=== PATIENT | male | born 2000 | race Two or more races ===

== ENCOUNTER 2021-05-26 17:57 | Emergency (ER) | payer MEDICAID ==
[~2021-05-26] VITALS: Ht 182.9 cm; Wt 72.7 kg
[2021-05-26] MEDS ORDERED: ACETAMINOPHEN 500 MG TABLET PO ONE (20:15)
[2021-05-26] MEDS ORDERED: KETOROLAC TROMETHAMINE 30 MG/ML VIAL IVP ONE (20:15)
[2021-05-26] MEDS ORDERED: ONDANSETRON HCL 4 MG/2 ML VIAL IVP ONE (20:15)
[2021-05-26] MEDS ORDERED: SODIUM CHLORIDE 0.9% 2,000 ML IV ONE (20:15)
[2021-05-26] MEDS ORDERED: MECLIZINE HCL 25 MG TABLET PO ONE (20:15)
[2021-05-26 20:24] LABS: BASOPHILS % (AUTO) 0.1 % (0.0-2.0); EOSINOPHILS % (AUTO) 0.1 % (1.0-6.0); HEMATOCRIT 47.9 % (41-53); HEMOGLOBIN 16.4 g/dL (13.5-17.5); LYMPHOCYTES # (AUTO) 1.1 K/uL (1.0-4.8); LYMPHOCYTES % (AUTO) 6.9 % (22.0-44.0); MEAN CORPUSCULAR HEMOGLOBIN 30.1 pg (26.0-34.0); MEAN CORPUSCULAR HGB CONC 34.2 G/dL (31.0-37.0); MEAN CORPUSCULAR VOLUME 88 fL (80-100); MONOCYTES # (AUTO) 1.2 K/uL (0.1-1.0); MONOCYTES % (AUTO) 7.6 % (2.0-9.0); NEUTROPHILS # (AUTO) 13.3 K/uL (1.8-7.7); PLATELET COUNT (AUTO) 282 K/uL (150-450); RED BLOOD CELL COUNT(AUTO) 5.44 MIL/uL (4.50-5.90); RED CELL DISTRIBUTION WIDTH 13.1 % (11.5-14.5)
[2021-05-26 20:33] LABS: NEUTROPHILS % (AUTO) 85.3 % (40.0-70.0)
[2021-05-26 20:34] LABS: CALCIUM, TOTAL 11.5 mg/dL (8.8-10.5); CREATININE 2.32 mg/dL (0.60-1.30)
[2021-05-26 20:40] LABS: TOTAL PROTEIN, SERUM 10.5 g/dL (6.4-8.2)
[2021-05-26 21:42] LABS: APPEARANCE,URINE TURBID (CLEAR); GLUCOSE, URINE (UA) NEGATIVE (NEGATIVE); KETONES,URINE 15 mg/dL (NEGATIVE); LEUKOCYTE ESTERASE ,URINE NEGATIVE (NEGATIVE); NITRATE,URINE NEGATIVE (NEGATIVE); OCCULT BLOOD,URINE NEGATIVE (NEGATIVE); PROTEIN,URINE SEE CONFIRM (NEGATIVE)
[2021-05-26 22:05] LABS: PLATELET MORPHOLOGY COMMENT LARGE PLTS PRESENT
[2021-05-26 22:07] LABS: BILIRUBIN,URINE PRELIM. POSITIVE (NEGATIVE)
[2021-05-26 22:09] LABS: SULFOSALICYLIC ACID,URINE 3+ (Negative)
[2021-05-26 22:12] LABS: RBC,URINE None Seen /HPF (0-2); SQUAMOUS EPITHELIAL CELL,UR Many /LPF (None Seen)
[2021-05-26 22:15] LABS: BACTERIA,URINE Few /HPF (None Seen)
[2021-05-26 22:31] VITALS: BP 127/73
== END 2021-05-26 22:59 | disposition home or self-care (01) ==
LOC: EMS 17:57
DX: T67.5XXA Heat exhaustion, unspecified, initial encounter (principal); E86.0 Dehydration; F17.210 Nicotine dependence, cigarettes, uncomplicated; F12.90 Cannabis use, unspecified, uncomplicated; F15.90 Other stimulant use, unspecified, uncomplicated; X58.XXXA Exposure to other specified factors, initial encounter; Y93.89 Activity, other specified; Y92.89 Other specified places as the place of occurrence of the external cause; Y99.8 Other external cause status
CPT/HCPCS: 36415; 80053; 81001; 81003; 82550; 83690; 85025; 96361; 96374; 96375; 99284; J1885; J2405; J7030; 81002